=== PATIENT | male | born 1990 | race Caucasian/White ===

== ENCOUNTER 2023-03-25 10:23 | Emergency (ER) | payer OTHER ==
[~2023-03-25] VITALS: Ht 175.3 cm; Wt 85.3 kg
--- NOTE | 2023-03-25 10:44 | NUR ---
WANDA FROM FACILITY FOR MED CLEARANCE ON 5149 HOLD FOR DTS D/T OD ON PILLS. SITTER @ BEDSIDE. DENIES CHEST PAIN,N,V,D, SOB. AAO X4. RESP EVEN AND NONLABORED. VSS. AMBULATORY. CALM, COOPERATIVE, COHERENT.
[2023-03-25 10:53] VITALS: BP_SYST 141; PULSE 70; RESP 16; TEMP 98; O2SAT 100
[2023-03-25 10:54] LABS: BILIRUBIN,URINE NEGATIVE (NEGATIVE); BLOOD, URINE NEGATIVE (NEGATIVE); CLARITY/URINE CLEAR (CLEAR); COLOR,URINE YELLOW (YELLOW); GLUCOSE,URINE NEGATIVE (NEGATIVE); KETONES,URINE NEGATIVE (NEGATIVE); LEUKOCYTE ESTERASE ,URINE NEGATIVE (NEGATIVE); NITRITE, URINE NEGATIVE (NEGATIVE); PROTEIN URINE NEGATIVE (NEGATIVE); UROBILINOGEN,URINE 0.2 (0.2-1.0)
[2023-03-25 11:06] LABS: ANION GAP 3 (5-15); CALCIUM 8.9 mg/dL (8.4-11.0); CHLORIDE 99 mmol/L (98-107); CREATININE 0.83 mg/dL (0.55-1.30); GFR AFRICAN AMERICAN 140 mL/min (>90); GLUCOSE 141 mg/dL (70-99); UREA NITROGEN, BLOOD 7 mg/dL (8-21)
[2023-03-25 11:09] LABS: BASOPHILS # (AUTO) 0.1 K/uL (0.0-0.2); BASOPHILS % (AUTO) 0.7 % (0.0-2.0); EOSINOPHILS # (AUTO) 0.1 K/uL (0.0-0.4); EOSINOPHILS % (AUTO) 1.8 % (0.0-4.0); HEMATOCRIT 46.7 % (36-54); HEMOGLOBIN 15.4 g/dL (14.0-18.0); LYMPHOCYTES # (AUTO) 1.5 K/uL (1.0-5.5); LYMPHOCYTES % (AUTO) 19.7 % (20.5-51.5); MEAN CORPUSCULAR HEMOGLOBIN 28 pg (27-31); MEAN CORPUSCULAR HGB CONC 33 % (32-36); MEAN CORPUSCULAR VOLUME 86 fL (79.0-98.0); MONOCYTES # (AUTO) 0.5 K/uL (0.0-1.0); MONOCYTES % (AUTO) 6.8 % (1.7-9.3); NEUTROPHILS # (AUTO) 5.6 K/uL (1.8-7.7); PLATELET COUNT (AUTO) 370 K/uL (130-430); RED BLOOD CELL COUNT(AUTO) 5.46 MIL/uL (4.2-6.2); RED CELL DISTRIBUTION WIDTH 14.5 % (9.0-15.0); WHITE BLOOD COUNT (AUTO) 7.8 K/uL (4.8-10.8)
[2023-03-25 11:15] LABS: ALANINE AMINOTRANSFERASE 40 U/L (12-78); ALBUMIN 3.9 g/dL (3.4-4.8); ASPARTATE AMINOTRANSFERASE 24 U/L (10-37); TOTAL BILIRUBIN 0.4 mg/dL (0.0-1.0)
[2023-03-25 11:16] LABS: ACETAMINOPHEN < 1 ug/mL (1-30); ALCOHOL, BLOOD < 3 mg/dL (<10)
[2023-03-25 11:17] LABS: BARBITURATE, URINE NEGATIVE (NEG <=200); BENZODIAZEPINE, URINE NEGATIVE (NEG <=150); CANNABINOID, URINE POSITIVE (NEG <=50); COCAINE, URINE NEGATIVE (NEG <=150); METHAMPHETAMINES SCREEN,URINE POSITIVE (NEG <=500); OPIATE, URINE NEGATIVE (NEG <=100); PHENCYCLIDINE SCREEN,URINE NEGATIVE (NEG <=25); UR TRICYCLIC ANTIDEPRESSANTS NEGATIVE (NEG <=300); URINE AMPHETAMINE POSITIVE (NEG <=500); URINE METHADONE NEGATIVE (NEG <=200); URINE OXYCODONE SCREEN NEGATIVE (NEG <=100); URINE PROPOXYPHENE SCREEN NEGATIVE (NEG <=300)
--- NOTE | 2023-03-25 11:30 | NUR ---
Stable Helper re: suicide risk In to see patient at bedside regarding his recent consult. The patient was resting in bed and had a BHS present with him at bedside. I introduced myself to the patient and explained why I was in to speak with him. The patient was in agreement to speaking with me. Per BHS, the patient was brought in for a medical clearance due to the patient's recent overdose. In speaking with the patient, he has "been going through a lot". He has been having feelings of worthlessness and not doing any good in life. He states he has been having a lot of depression and anxiety. When I attempted to inquire what his triggers were/are, he stated "its just a lot going on". I inquired what happened that placed him on the 5150 hold, and he indicated he tried to kill him self by overdosing on fentanyl. I provided him with empathy and compassion about more to offer in this life time, as someone saw fit to get him some help. The patient states he believes he has a guardian anselmo and that is why he got the help he needed. Per patient, he has not been receiving ongoing treatment for his mental health. At this time, the patient states he "feels descent" and is just "trying to obed out". I explained his 5150 hold, as he was unsure as to what it meant. I informed him that staff are working to get the help and support he needs so that he can appropriately and effectively manage his mental health needs. The patient was advised that he was brought here from [facility], but that upon his medical clearance, he will return back to [facility] for necessary mental health services. The patient was informed about the purpose of a 5150 hold and why/how he was placed on the hold. The patient was in agreement of services and understood what all was happening. Prior to leaving, the patient inquired about something to eat. He stated he was hungry. I advised him I would check with his nurse and see about getting him a sandwich as lunch might not be ready to be served. I spoke to CARL Jeffrey. We spoke about my conversation with the patient and I advised her that he is mentioning he is hungry. She indicated she would call in a meal tray for him, and I advised her I would retrieve his meal. At this time, the sitter remains with the patient at bedside and states that upon clearance, the patient will return back to [facility].
--- NOTE | 2023-03-25 14:00 | NUR ---
Patient given written and verbal discharge instructions and verbalizes understanding. ER MD discussed with patient the results and treatment provided. Patient in stable condition. ID arm band removed. Opportunity for questions provided and answered. Medication side effect fact sheet provided. transported via [facility] unit [id number] accompanied by 2 driver/guide and sitter to [facility] . vss. original hold in packet.
[2023-03-25 14:07] VITALS: BP_SYST 140; PULSE 72; RESP 18; TEMP 98.2; O2SAT 100
== END 2023-03-25 14:40 ==
LOC: SED 10:23
DX: R10.9 Unspecified abdominal pain (principal); T40.2X1A Poisoning by other opioids, accidental (unintentional), initial encounter; F12.90 Cannabis use, unspecified, uncomplicated; F17.210 Nicotine dependence, cigarettes, uncomplicated; Z79.899 Other long term (current) drug therapy; Y92.89 Other specified places as the place of occurrence of the external cause
CPT/HCPCS: 99285; 80307; 80053; 85025; 36415; 93005; 81003; G0482; G0480; G0481; 99284